=== PATIENT | male | born 1965 | race Hispanic/Latino ===

== ENCOUNTER → 2024-01-01 | Outpatient (REF) | payer MEDICARE ==
[~2024-01-01] MED LIST: CALCIUM600 MG PO; IOPAMIDOL 370 MG/ML 100 ML INFUS..BTL INJ ONE; LISINOPRIL2.5 MG PO; METOPROLOL SUCC25 MG PO; OMEPRAZOLE40 MG PO; ONDANSETRON ODT8 MG PO; RENA-VITE RX T1 EACH PO; TYLENOL325 MG PO; ZITHROMAX250 MG PO
[2024-01-01 10:06] LABS: CREATININE, SERUM 9.81 mg/dL (0.72-1.25)
== END ==
LOC: CT 08:45
PROVIDERS: ATTEND Internal Medicine Infectious Disease
DX: D72.829 Elevated white blood cell count, unspecified (principal)
CPT/HCPCS: 36415; 71260; 74177; 82565; 84520; Q9967

== ENCOUNTER → 2024-02-07 | Outpatient (REF) | payer MEDICARE ==
[~2024-02-07] MED LIST changes: -IOPAMIDOL 370 MG/ML 100 ML INFUS..BTL INJ ONE; +LIDOCAINE HCL 1% LOCAL INJ 20 ML VIAL ONE
[2024-02-07 09:29] LABS: BASOPHILS % 0.2 % (0.0-1.0); EOSINOPHILS # (AUTO) 0.1 (0.0-0.4); EOSINOPHILS % 0.7 % (0.0-6.0); HEMATOCRIT 33.1 % (38.2-49.6); HEMOGLOBIN 10.8 g/dL (14.0-18.0); LYMPHOCYTES # (AUTO) 12.3 (1.0-3.2); LYMPHOCYTES % 72.1 % (18.0-39.1); MEAN CORPUSCULAR HEMOGLOBIN 32.2 pg (28-32); MEAN CORPUSCULAR HGB CONC 32.6 g/dL (31-35); MEAN CORPUSCULAR VOLUME 98.8 fL (81-99); MONOCYTES # (AUTO) 1.6 (0.2-0.8); MONOCYTES % 9.5 % (4.4-11.3); NEUTROPHILS # (AUTO) 2.9 (2.1-6.9); NEUTROPHILS % 17.4 % (38.7-80.0); PLATELET COUNT 158 x10e3/uL (140-360); RED BLOOD COUNT 3.35 x10e6/uL (4.3-5.7); RED CELL DISTRIBUTION WIDTH 12.4 % (11.7-14.4); WHITE BLOOD COUNT 16.98 x10e3/uL (4.8-10.8)
[2024-02-07 09:31] LABS: INR 0.92; PROTHROMBIN TIME 12.9 seconds (11.9-14.5)
[2024-02-07 09:32] LABS: PARTIAL THROMBOPLASTIN TIME 29.9 seconds (23.8-35.5)
[2024-02-07 09:46] LABS: ALBUMIN 4.3 g/dL (3.5-5.0); ALBUMIN/GLOBULIN RATIO 1.7 (0.8-2.0); ANION GAP 16.9 mmol/L (8-16); BILIRUBIN,TOTAL 1.6 mg/dL (0.2-1.2); CALCIUM 10.5 mg/dL (8.4-10.2); CREATININE, SERUM 8.46 mg/dL (0.72-1.25); POTASSIUM 4.9 mmol/L (3.5-5.1); TOTAL PROTEIN 6.8 g/dL (6.5-8.1)
== END ==
LOC: US 08:38
PROVIDERS: ATTEND Internal Medicine Infectious Disease
DX: R59.0 Localized enlarged lymph nodes (principal)
CPT/HCPCS: 36415; 38505; 76942; 80053; 85025; 85610; 85730; 88304; J2003